=== PATIENT | female | born 1965 | race Caucasian/White ===

== ENCOUNTER 2023-03-17 16:26 | Emergency (ER) | payer OTHER, SELFPAY ==
[2023-03-17 16:29] VITALS: BP 149/89; PULSE 74; RESP 16; TEMP 36.9; O2SAT 96; BMI 26.5
--- NOTE | 2023-03-17 16:36 | PC.NURSE ---
pt states she was outside painting a deck and was stung by a bee on her left hand. left hand is swollen and red. pt is concerned about having respiratory issues related to the bee sting and wanted to be checked out.
--- NOTE | 2023-03-17 16:42 | ED.GENADUL1 ---
HPI - General Adult General Chief complaint: Skin/Abscess/Foreign Body Stated complaint: HAND SWELLING-STUNG Time Seen by Provider: 03/17/23 16:32 Source: patient Mode of arrival: walk-in Limitations: no limitations History of Present Illness HPI narrative: patient is a 57-year-old female presents to the emergency department the evaluation of swelling and redness to the dorsum of the left hand after a bee sting just prior to arrival. She states she was painting her deck when she was stung by a bee in the dorsum of the hand, she noticed redness and swelling and came to the emergency department immediately because she did not wanted to cause a respiratory . She has had no lip swelling, tongue swelling, difficulty breathing or wheezing. She has had no diffuse hives. She has no history of bee sting ALLERGY. No medications taken prior to arrival. Related Data Home Medications Medication Instructions Recorded Confirmed pantoprazole 20 mg tablet,delayed 20 mg PO DAILY 03/17/23 03/17/23 release Previous Rx's Medication Instructions Recorded hydroxyzine HCl 25 mg tablet 25 mg PO Q6H PRN itching #20 tabs 03/17/23 prednisone 20 mg tablet 60 mg PO DAILY #12 tabs 03/17/23 Allergies Allergy/AdvReac Type Severity Reaction Status Date / Time No Known Drug Allergies Allergy Verified 03/17/23 16:32 Review of Systems ROS Constitutional Denies: fever or chills Ears, nose, mouth, and throat Denies: throat pain or neck pain Cardiovascular Denies: chest pain Respiratory Denies: shortness of breath or cough Gastrointestinal Denies: nausea or vomiting Musculoskeletal Denies: back pain Integumentary/Breast Denies: rash PFSH PFSH Social History Smoking status: Never smoker Exam Narrative Exam Narrative: Gen.: Awake, alert, in no distress Head: Normocephalic, atraumatic ENT: Moist mucous membranes, no facial swelling noted Respiratory: No respiratory distress, lungs clear bilaterally Cardio: Regular rate and rhythm Extremities: Moves extremities equally, dorsum of the left hand with a small area of swelling and redness over the 2nd, 3rd, 4th metacarpal joints. No circumferential swelling noted. No evidence of retained stinger. No drainage or open wounds noted Psych: Normal mood and affect Neuro: No focal neuro deficit Skin: Warm, dry, intact Constitutional Vital Signs - 24 hr 03/17/23 16:29 Temperature 98.5 F Pulse Rate [Monitor] 74 Respiratory Rate 16 Blood Pressure [Right Arm] 149/89 H Pulse Oximetry 96 Oxygen Delivery Method Room Air Course Vital Signs Vital signs: Vital Signs Temperature 98.5 F 03/17/23 16:29 Pulse Rate 74 03/17/23 16:29 Respiratory Rate 16 03/17/23 16:29 Blood Pressure 149/89 H 03/17/23 16:29 Pulse Oximetry 96 03/17/23 16:29 Oxygen Delivery Method Room Air 03/17/23 16:29 Temperature 98.5 F 03/17/23 16:29 Pulse Rate 74 03/17/23 16:29 Respiratory Rate 16 03/17/23 16:29 Blood Pressure 149/89 H 03/17/23 16:29 Pulse Oximetry 96 03/17/23 16:29 Oxygen Delivery Method Room Air 03/17/23 16:29 Medical Decision Making MDM Narrative Medical decision making narrative: patient was a benign exam, evidence of localized ALLERGIC reaction to the dorsum of the left hand. Patient with no evidence of anaphylaxis or diffuse ALLERGIC reaction. She is started on Atarax and prednisone. Follow-up with PCP and return to the Emergency Room if symptoms change or worsen. Medical Records Medical records reviewed: Yes I reviewed the patient's medical records Discharge Plan Discharge Chief Complaint: Skin/Abscess/Foreign Body Clinical Impression: Bee sting Patient Disposition: Home, Self-Care Time of Disposition Decision: 16:38 Condition: Good Prescriptions / Home Meds: New prednisone 20 mg tablet 60 mg PO DAILY Qty: 12 0RF Rx Instructions: 3 tabs daily for 2 days, then 2 tabs daily for 2 days, then 1 tab daily for 2 days hydroxyzine HCl 25 mg tablet 25 mg PO Q6H PRN (Reason: itching) Qty: 20 0RF No Action pantoprazole 20 mg tablet,delayed release (DR/EC) 20 mg PO DAILY Instructions: Insect Bite or Sting (ED) Stand Alone Forms: Portal Instructions Referrals: Physician,Non-Staff, MD [Primary Care Provider] - 1 week
[2023-03-17] MEDS: PREDNISONE 20 MG TABLET 60 MG PO (16:47)
== END 2023-03-17 17:02 | disposition home or self-care (01) ==
PROVIDERS: Emergency Provider Emergency Medicine Emergency Medical Services
DX: T63.441A Toxic effect of venom of bees, accidental (unintentional), initial encounter (principal); Z79.899 Other long term (current) drug therapy
CPT/HCPCS: 99283

== ENCOUNTER 2023-04-08 13:29 | Outpatient (OUT) | payer OTHER, SELFPAY ==
--- NOTE | 2023-04-08 13:32 | MM_ITS ---
Patient: ROBEL BOND Exam Date: 04/08/2023 : 1965 Gender:F Ordering : DR José Miguel Forbes . Admission #: [id number] Family : DR Ana Baum M.D. Order #: [id number] CLICK HERE TO VIEW EXAM RADIOLOGY REPORT PROCEDURE: MM TOMOSYNTHESIS SCREENING BI COMPARISON: MG MAMM SCREEN 3D EVERT CAD, 04/04/2022. MG MAMM SCREEN 3D EVERT CAD, 03/28/2021. MG MAMM SCREEN EVERT W CAD, 04/08/2019. MG MAMM EVERT SCRN W CAD DIG, 01/18/2014. INDICATIONS: Screening Calculator Name NCI Breast Cancer Risk Assessment Tool 5 Year Breast Cancer Risk 1.30% Lifetime Breast Cancer Risk 9.10% Personal Breast Cancer No Personal Ovarian Cancer No Treatments None Family Cancers None LOCATION: [facility] BREAST COMPOSITION: Extremely dense, which lowers the sensitivity of mammography. FINDINGS: DIAGNOSTIC CATEGORY 1--NEGATIVE. RIGHT BREAST: No significant suspicious finding. No significant change has occurred. LEFT BREAST: No significant suspicious finding. No significant change has occurred. RECOMMENDATIONS: ROUTINE MAMMOGRAM AND CLINICAL EVALUATION IN 12 MONTHS. PLEASE NOTE: A NORMAL MAMMOGRAM DOES NOT EXCLUDE THE POSSIBILITY OF BREAST CANCER. A CLINICALLY SUSPICIOUS PALPABLE LUMP SHOULD BE BIOPSIED. Dictated by: Jassi Mercado M.D. on 04/08/2023 at 15:43 Approved by: Jassi Mercado M.D. on 04/08/2023 at 15:49
== END 2023-04-08 13:30 | disposition home or self-care (01) ==
LOC: MAMMO 13:29
PROVIDERS: PCP Family Medicine; Visit Provider Obstetrics & Gynecology
DX: Z12.31 Encounter for screening mammogram for malignant neoplasm of breast (principal)
CPT/HCPCS: 77063; 77067

== ENCOUNTER 2023-04-14 09:33 | Outpatient (OUT) | payer OTHER, SELFPAY ==
--- NOTE | 2023-04-14 09:45 | XR_ITS ---
[address] [address] Patient Name: ROBEL BOND MRN: [id number] date: 1965 Sex: F Assigned Patient Location: [facility] Current Patient Location: [facility] Accession/Order Number: [id number] Exam Date: 04/14/2023 10:00 Report Date: 04/14/2023 10:52 At the request of: CARMELINA KEYES Procedure: XR DEXA axial skeleton EXAMINATION: XR DEXA axial skeleton HISTORY: Post menopausal syndrome N95.1 COMPARISON: DEXA bone densitometry 01/18/2022 TECHNIQUE: Dual-energy X-ray absorptiometry (DXA) was performed. FINDINGS: SPINE ANALYSIS: Average bone mineral density is 0.97 g/cm2. T-score (standard deviation relative to young adult mean): -2.4 . +0.7% change since prior study. HIP ANALYSIS: Lowest bone mineral density is within the left femoral trochanter, 0.528 g/cm2. T-score (standard deviation relative to young adult mean): -2.8 . T score of femoral neck is -2.5. +0.7% change since prior study. XR/XR DEXA axial skeleton IMPRESSION: World [employer] Classification: Osteoporosis - High Fracture Risk Electronically authenticated by: JASVIR CHAPPELL Date: 04/14/2023 10:52
== END 2023-04-14 09:34 | disposition home or self-care (01) ==
LOC: RAD 09:33
PROVIDERS: PCP Family Medicine; Visit Provider Obstetrics & Gynecology
DX: N95.1 Menopausal and female climacteric states (principal); M81.0 Age-related osteoporosis without current pathological fracture
CPT/HCPCS: 77080

== ENCOUNTER 2023-11-17 13:43 | Outpatient (OUT) | payer OTHER, SELFPAY ==
--- NOTE | 2023-11-17 13:53 | XR_ITS ---
The [address] [address] Patient Name: ROBEL BOND MRN: [id number] date: 1965 Sex: F Assigned Patient Location: RAD Current Patient Location: [facility] Accession/Order Number: [id number] Exam Date: 11/17/2023 13:57 Report Date: 11/17/2023 14:35 At the request of: DEBRA RATLIFF Procedure: XR hip LT 2V w/ pelvis PROCEDURE: XR hip LT 2V w/ pelvis COMPARISON: None. HISTORY: pain in the left hip with pelvis M25.552 FINDINGS: BONES:No fracture, acute abnormality, or significant arthropathy.1.7 cm area of sclerosis projects over the right inferior acetabulum SOFT TISSUES:Negative. No visible soft tissue swelling. EFFUSION:None visible. OTHER: Moderate stool throughout the colon XR/XR hip LT 2V w/ pelvis IMPRESSION: Focal sclerosis right acetabulum, nonspecific No acute abnormality of the left hip Electronically authenticated by: HARDY MILLER Date: 11/17/2023 14:35
== END 2023-11-17 13:44 | disposition home or self-care (01) ==
LOC: RAD 13:47
PROVIDERS: PCP Family Medicine; Visit Provider Family Medicine
DX: M25.552 Pain in left hip (principal); G89.29 Other chronic pain
CPT/HCPCS: 73502

== ENCOUNTER 2023-12-15 14:57 | Outpatient (RCR) | payer OTHER, SELFPAY | END 2024-01-27 17:20 | disposition home or self-care (01) | LOC: PT 14:57 | PROVIDERS: PCP Family Medicine; Visit Provider Orthopaedic Surgery | DX: M76.892 Other specified enthesopathies of left lower limb, excluding foot (principal) | CPT/HCPCS: 20561; 97110; 97112; 97161 ==

== ENCOUNTER 2024-01-26 15:15 | Outpatient (REF) | payer OTHER, SELFPAY | END 2024-01-26 15:16 | disposition home or self-care (01) | LOC: LAB 15:15 | PROVIDERS: PCP Family Medicine; Visit Provider Obstetrics & Gynecology | DX: Z01.419 Encounter for gynecological examination (general) (routine) without abnormal findings (principal) | CPT/HCPCS: 87624; G0145 ==

== ENCOUNTER 2024-04-09 11:01 | Outpatient (OUT) | payer OTHER, SELFPAY ==
--- NOTE | 2024-04-09 11:04 | MM_ITS ---
Patient Name: ROBEL BOND MR#: [id number] : 1965 Exam Date: 04/09/2024 Ordering Doctor: DR José Miguel Forbes . RADIOLOGY REPORT PROCEDURE: MM TOMOSYNTHESIS SCREENING BI COMPARISON: MM TOMOSYNTHESIS SCREENING BI, 04/08/2023. MG MAMM SCREEN 3D EVERT CAD, 04/04/2022. MG MAMM SCREEN 3D EVERT CAD, 03/28/2021. MG MAMM EVERT SCRN W CAD DIG, 01/18/2014. INDICATIONS: Screening Calculator Name NCI Breast Cancer Risk Assessment Tool 5 Year Breast Cancer Risk 1.40% Lifetime Breast Cancer Risk 8.90% Personal Breast Cancer No Personal Ovarian Cancer No Treatments None Family Cancers None LOCATION: [facility] BREAST COMPOSITION: The breasts are extremely dense, which lowers the sensitivity of mammography. FINDINGS: DIAGNOSTIC CATEGORY 1--NEGATIVE. RIGHT BREAST: No significant suspicious finding. No significant change has occurred. LEFT BREAST: No significant suspicious finding. No significant change has occurred. RECOMMENDATIONS: ROUTINE MAMMOGRAM AND CLINICAL EVALUATION IN 12 MONTHS. PLEASE NOTE: A NORMAL MAMMOGRAM DOES NOT EXCLUDE THE POSSIBILITY OF BREAST CANCER. A CLINICALLY SUSPICIOUS PALPABLE LUMP SHOULD BE BIOPSIED. Dictated by: Jassi Mercado M.D. on 04/09/2024 at 14:17 Approved by: Jassi Mercado M.D. on 04/09/2024 at 14:19
--- NOTE | 2024-04-09 11:04 | XR_ITS ---
[address] [address] Patient Name: ROBEL BOND MRN: [id number] date: 1965 Sex: F Assigned Patient Location: [facility] Current Patient Location: [facility] Accession/Order Number: [id number] Exam Date: 04/09/2024 11:25 Report Date: 04/09/2024 16:21 At the request of: CARMELINA KEYES Procedure: XR DEXA axial skeleton EXAMINATION: XR DEXA axial skeleton HISTORY: Post Menopausal Z78.0 COMPARISON: DEXA bone densitometry 04/14/2023 TECHNIQUE: Dual-energy X-ray absorptiometry (DXA) was performed. FINDINGS: SPINE ANALYSIS: Average bone mineral density is 0.67 g/cm2. T-score (standard deviation relative to young adult mean): -2.6 . -3.4% change since prior study. HIP ANALYSIS: Lowest bone mineral density is within the left femoral neck, 0.649 g/cm2. T-score (standard deviation relative to young adult mean): -2.8 . -5.5% change since prior study. XR/XR DEXA axial skeleton IMPRESSION: World Health Organization Classification: Osteoporosis - High Fracture Risk FRAX: Cannot be calculated. Pharmacologic treatment recommendations * No uniform recommendation applies to all patients. Management plans must be individualized. * Consider initiating pharmacologic treatment in postmenopausal women and men >= 50 years of age who have the following: Primary fracture prevention: * T-score <= - 2.5 at the femoral neck, total hip, lumbar spine, 33% radius (some uncertainty with existing data) by DXA. * Low bone mass (osteopenia: T-score between - 1.0 and - 2.5) at the femoral neck or total hip by DXA with a 10-year hip fracture risk >= 3% or a 10-year major osteoporosis-related fracture risk >= 20% (i.e., clinical vertebral, hip, forearm, or proximal humerus) based on the [place]-adapted FRAXregistered model. Secondary fracture prevention: * Fracture of the hip or vertebra regardless of BMD [4, 5]. * Fracture of proximal humerus, pelvis, or distal forearm in persons with low bone mass (osteopenia: T-score between - 1.0 and - 2.5). The decision to treat should be individualized in persons with a fracture of the proximal humerus, pelvis, or distal forearm who do not have osteopenia or low BMD [12, 13]. Gurpreet MS, Tino SL, Serge KL, Jose Antonio EM, Des KG, AJ, Salena ES. The clinician's guide to prevention and treatment of osteoporosis. Osteoporos Int. 2021;33(10):5196-2431. doi: 10.1007/a11329-206-67065-s. Epub 2021Jan 10. Erratum in: Osteoporos Int. 2021Apr 11;: PMID: 24524922; PMCID: [id number]. Electronically authenticated by: JASVIR CHAPPELL Date: 04/09/2024 16:21
== END 2024-04-09 11:02 | disposition home or self-care (01) ==
LOC: MAMMO 11:01
PROVIDERS: PCP Family Medicine; Visit Provider Obstetrics & Gynecology
DX: Z12.31 Encounter for screening mammogram for malignant neoplasm of breast (principal); Z78.0 Asymptomatic menopausal state; M81.0 Age-related osteoporosis without current pathological fracture
CPT/HCPCS: 77063; 77067; 77080

== ENCOUNTER 2024-08-24 12:00 | Outpatient (RCR) | payer OTHER, SELFPAY | END 2024-09-14 15:07 | disposition home or self-care (01) | LOC: OT 12:00 | PROVIDERS: PCP Family Medicine; Visit Provider Family Medicine | DX: G56.01 Carpal tunnel syndrome, right upper limb (principal) | CPT/HCPCS: 97035; 97110; 97165; 97530 ==

== ENCOUNTER 2024-08-24 12:01 | Outpatient (RCR) | payer OTHER, SELFPAY | END 2024-09-14 15:07 | disposition home or self-care (01) | LOC: PT 12:01 | PROVIDERS: PCP Family Medicine; Visit Provider Family Medicine | DX: M25.562 Pain in left knee (principal) | CPT/HCPCS: 97010; 97014; 97035; 97110; 97161 ==

== ENCOUNTER 2025-02-01 19:20 | Outpatient (REF) | payer OTHER, SELFPAY ==
--- OUTSIDE RECORDS SUMMARY | 2023-12-08 06:10 | XMS_ITS ---
Author Organization [facility] Address [address] [place] [address] Care Team Providers Care Smelter Operator Name Role Phone Ana Baum M.D. Primary Care Provider Jessica MartinezJassi Unavailable [phone] Allergies No Known Allergies Results Component Value Reference Range Notes SCC- PT/OT EVAL AND TREAT 3X /WEEK FOR 6 WEEKS Reviewed date:12/10/2023 02:00:56 PM Interpretation: Performing Lab: Notes/Report: REASON FOR VISIT LEFT HIP PAIN Medications Medication SIG (Take, Route, Frequency, Duration) Notes Start Date End Date Status Vitamin D3 Active Calcium 600+D Active Probiotic Digestive Aid Gummies Active pantoprazole Active Social History Tobacco Use: Social History Observation Description Date Details (start date - stop date) Never Smoker NA - NA Smoking History Question Answer Notes Smoking Status NonSmoker Alcohol Screening Question Answer Notes Did you have a drink containging alcohol in the last year? No Points 0 Interpretation Negative Problems Problem Type SNOMED Code ICD Code Onset Dates Problem Status W/U Status Risk Notes Problem [id number] Hamstring tendinitis of left thigh (M76.892) Active confirmed Vital Signs Height 5'2 in 12/08/2023 Weight 145 lbs 12/08/2023 BMI 26.52 12/08/2023 Encounters Encounter Location Date Provider Diagnosis [facility] Office [address] [place] [address] [address] [place] [address] 12/08/2023 Jassi Martinez Hamstring tendinitis of left thigh M76.892 Assessments Encounter Date Diagnosis (ICD Code) Assessment Notes Treatment Notes Treatment Clinical Notes Section Notes 12/08/2023 Hamstring tendinitis of left thigh (ICD-10 - M76.892) 12/08/2023 Other Patient comes pain localizes to the ischial tuberosity. I discussed the patient that likelihood is that she has inflammation of the ischial tuberosity at the hamstring origin. She is not a candidate for NSAIDs. I recommended physical therapy. She will follow-up in 6 weeks to reassess her progress. If symptoms have not improved we have discussed obtaining an MRI scan for potential planning for a steroid injection. Import medication Plan Of Treatment Treatment Notes Assessment Notes Other Patient comes pain localizes to the ischial tuberosity. I discussed the patient that likelihood is that she has inflammation of the ischial tuberosity at the hamstring origin. She is not a candidate for NSAIDs. I recommended physical therapy. She will follow-up in 6 weeks to reassess her progress. If symptoms have not improved we have discussed obtaining an MRI scan for potential planning for a steroid injection. Import medication Next Appt Details Follow Up: 6 Weeks, Reason: Progress Notes * ROBEL BOND MDOB:[birth year] (58 yo F)Acc No.[id number]:12/08/2023 Patient: ROBEL ALFONSO Provider: Keena Martinez MD :1965 A ge:58 Y S ex:Female Date:12/08/2023 Address:[facility] [id number] Pcp:Ana Baum M.D. Subjective: * Chief Complaints: * L EFT HIP PAIN * HPI: T el Enc Reasons: \N g nawing. G eneral Info per Patient Report: Have you seen another doctor in this practice? N o. S kevan affected is L eft. J oint or body part affected is H ip. D ate of Injury: I think I hurt my hip initially when I fell and broke my wrist in April of 2016. But not sure if that is where it started or not.. S tart of Pain/Cause of Injury N oticed it last year 2022 when I did certain exercises like riding my bicycle and a wide 'step out' squats.. P ain occurred S pontaneous. W ork related: N o. M VA N o. T hird alliance party responsibility: N o. Q uality of pain is m oderate. T ype of pain: d ull. H ave you been seen by a Dentist in the last year? Y es. D o you have any dental problems? N o. P hysician W jonnh of the following physicians are you seeing today? N one of the above. W hat activities help the pain? R est and Ice. G eneral Follow Up Information: Patient presents today for left hip pain. Patient reports symptoms started over a year ago. Activities such as bicycling when she places her leg through extension with hamstring activation causes the pain. She localizes pain to the ischial tuberosity. Activities such as stepping wide during workouts cause pain. * ROS: C onstitutional: Fever N o. W eight loss N o. F atigue Y es.?Headache N o. E ar/Nose/Throat: Difficulty Swallowing Y es. N ose/ Throat: Trouble swallowing N o. G astrointestinal: Ulcer/Reflux Y es. N ausea/Vomiting N o. C onstipation N o. D iarrhea N o. B loody Stool N o. M usculoskeletal: Joint Swelling N o. J oint pain Y es. J oint stiffness N o. H ematologic: Bleeding problem N o. A nemia N o. B ruising?No. C ardiovascular: Chest pain N o. L eg/Ankle Swelling N o. N eurological: Numbness/ Tingling N o. M lyndsey loss N o. ? P sychiatric: Anxiety Y es. 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 M other: Diabetes,Lung Disease,Hypertension,Sleep Apnea. S iblings: Alcoholism. F ather: Arthritis,Diabetes,Heart Trouble,Heart Disease,Hypertension,Alcoholism,Sleep Apnea. * Social History: S moking History S moking Status N onSmoker. A lcohol Screening D id you have a drink containging alcohol in the last year? N o, P oints 0 , I nterpretation N egative. C onsume alcohol D o you drink alcohol? N o. E xercise regularly D o you exercise? Y es, H ow many times per week? d aily, H ow long do you exercise? > 30 min. D o you live W ith whom do you live? s pouse only. W hat is your place of residence? W here do you live? P rivate home. W orking status W hat is your working status? n ot working. * Medications: T akingProbiotic Digestive Aid Gummies Vitamin D3 Calcium 600+D pantoprazole Medication List reviewed and reconciled with the patientTaking Probiotic Digestive Aid Gummies Taking Vitamin D3 Taking Calcium 600+D Taking pantoprazole Medication List reviewed and reconciled with the patient * Allergies: N .K.D.A.no[Allergies Verified] Objective: * Vitals: H t: 5'2 , Wt: 145 lbs, BMI:26.52. * Examination: G eneral examination: E xamination today reveals pain reproduction with palpation of the ischial tuberosity. Painless hip range of motion. Gait is nonantalgic. Grossly neurovascularly intact. X -ray Imaging Studies: X -rays of her left hip which include the ischial tuberosity show no acute abnormalities. No arthritic changes. . M RI Imaging Studies: Assessment: * Assessment: 1. H amstring tendinitis of left thigh - M76.892 (Primary) Plan: * Treatment: 2. O thers Notes: Patient comes pain localizes to the ischial tuberosity. I discussed the patient that likelihood is that she has inflammation of the ischial tuberosity at the hamstring origin. She is not a candidate for NSAIDs. I recommended physical therapy. She will follow-up in 6 weeks to reassess her progress. If symptoms have not improved we have discussed obtaining an MRI scan for potential planning for a steroid injection. Import medication * Procedure Codes: * Follow Up: 6 Weeks Forms: * Images: * Sign off status: Completed true * Provider: Keena Martinez MD Date: 12/08/2023 Generated for Hayden wylie/Yaneth/Juan on: 0 02/01/2025 07:23 PM EDT History and Physical Notes * HPI (History of Present Illness) Category Sub-Category Detail Notes Category Not es Tel Enc Reasons Notes gnawing General Follow Up Information Patient presents tod ay for left hip pain. Patient reports symptoms started over a year ago. Activities such as bicycling when she places her leg through extension with hamstring activation causes the pain. She localizes pain to the ischial tuberosity. Activities such as stepping wide during workouts cause pain. General Info per Patient Report Side affected is Left Joint or body part affected is Hip Pain occurred Spontaneous Work related: No Quality of pain is moderate Type of pain: dull Have you seen another doctor in this practice? No Date of Injury: I think I hurt my hi p initially when I fell and broke my wrist in April of 2016. But not sure if that is where it started or not. Start of Pain/Cause of Injury Noticed it last year 2022 when I did certain exercises like riding my bicycle and a wide 'step out' squats. Third alliance party responsibility: No Have you been seen by a [facility] ist in the last year? Yes Do you have any dental problems? No Physician Which of the followi ng physicians are you seeing today?: None of the above What activities help the pain? Rest and Ice MVA No Examination Category Sub-Category Detail Notes Category Not es General examination Examinat ion today reveals pain reproduction with palpation of the ischial tuberosity. Painless hip range of motion. Gait is nonantalgic. Grossly neurovascularly intact. X-ray Imaging Studies X-rays of her left hip which include the ischial tuberosity show no acute abnormalities. No arthritic changes. MRI Imaging Studies
--- OUTSIDE RECORDS SUMMARY | 2024-01-19 05:30 | XMS_ITS ---
Author Organization [facility] Address [address] [place] [address] Care Team Providers Care Piano Assembler Name Role Phone Ana Baum M.D. Primary Care Provider Jessica kline Jassi Martinez [facility] [phone] Allergies No Known Allergies REASON FOR VISIT LEFT HAMSTRING TENDONITIS, ISCHIAL TUBEROSITY Medications Medication SIG (Take, Route, Frequency, Duration) Notes Start Date End Date Status Vitamin D3 Active Probiotic Digestive Aid Gummies Active pantoprazole Active Calcium 600+D Active Social History Tobacco Use: Social History Observation Description Date Details (start date - stop date) Never Smoker NA - NA Smoking History Question Answer Notes Smoking Status NonSmoker Alcohol Screening Question Answer Notes Did you have a drink containging alcohol in the last year? No Points 0 Interpretation Negative Encounters Encounter Location Date Provider Diagnosis [facility] Office [address] [place] [address] [place] [address] 01/19/2024 Jassi Martinez Hamstring tendinitis of left thigh M76.892 Assessments Encounter Date Diagnosis (ICD Code) Assessment Notes Treatment Notes Treatment Clinical Notes Section Notes 01/19/2024 Hamstring tendinitis of left thigh (ICD-10 - M76.892) 01/19/2024 Other The patient is doing well. She will transition to home exercises and progress activities as tolerated. If symptoms return she will call and to obtain an MRI scan of her pelvis. Import medication Plan Of Treatment Treatment Notes Assessment Notes Other The patient is doing well. She will transition to home exercises and progress activities as tolerated. If symptoms return she will call and to obtain an MRI scan of her pelvis. Import medication Next Appt Details Follow Up: prn, Reason: Progress Notes * ROBEL BOND MDOB:[birth year] (58 yo F)Acc No.[id number]:01/19/2024 Patient: ROBEL ALFONSO Provider: Keena Martinez MD :1965 A ge:58 Y S ex:Female Date:01/19/2024 Address:[facility] [id number] Pcp:Ana Baum M.D. Subjective: * Chief Complaints: * L EFT HAMSTRING TENDONITIS, ISCHIAL TUBEROSITY * HPI: G eneral Follow Up Information: Patient presents today for follow-up of her left hamstring pain and her ischial tuberosity. She has noticed improvement in symptoms while in physical therapy. She still does get some discomfort with prolonged sitting. Biking after 2 miles caused some discomfort. * Medical History: * Surgical History: S [...] Allergies: N .K.D.A.no[Allergies Verified] Objective: * Vitals: * Examination: G eneral examination: O n exam today she is in no obvious distress. No tenderness along the ischial tuberosity. Gait is normal. X -ray Imaging Studies: M RI Imaging Studies: Assessment: * Assessment: 1. H amstring tendinitis of left thigh - M76.892 (Primary) Plan: * Treatment: * Procedure Codes: * Follow Up: p rn Forms: * Images: * Sign off status: Completed true * Provider: Keena Martinez MD Date: 0 01/19/2024 Generated for Hayden wylie/Yaneth/Juan on: 02/01/2025 11:02 AM EDT History and Physical Notes * HPI (History of Present Illness) Category Sub-Category Detail Notes Category Not es General Follow Up Information Patient presents tod ay for follow-up of her left hamstring pain and her ischial tuberosity. She has noticed improvement in symptoms while in physical therapy. She still does get some discomfort with prolonged sitting. Biking after 2 miles caused some discomfort. Examination Category Sub-Category Detail Notes Category Not es General examination On exam today she is in no obvious distress. No tenderness along the ischial tuberosity. Gait is normal. X-ray Imaging Studies MRI Imaging Studies
--- OUTSIDE RECORDS SUMMARY | 2025-02-01 19:23 | XMS_ITS | Patient Health Record ---
Author Organization [facility] Address [address] [place] [address] Care Team Providers Care Health Education Aide Name Role Phone Ana Baum M.D. Primary Care Provider Jessica kline [facility]ass[facility] [phone] Allergies No Known Allergies Reason For Referral No Information Medications Medication SIG (Take, Route, Frequency, Duration) [...] Problem Status W/U Status Risk Notes Problem [id number] Hamstring tendinitis of left thigh (M76.892) Active confirmed Plan Of Treatment No Information Insurance Providers Payer Name Payer Address Payer Phone Subscriber Number Group Number Insured Name Patient Relationship to Insured Coverage Start Date Coverage End Date Medical [facility] [address] [place] [phone] [id number] ROBEL BOND Self - patient is the insured [employer] [address] [place] [phone] [id number] ROBEL BOND Self - patient is the insured Medical (General) History Medical History History ICD Code Respiratory problems:: Yes GI Problems: : Yes Anxiety: : Yes Surgical History Surgery Date(Month/Year) Spinal stenosis 11/2016
[2025-02-04 11:09] LABS: Age Gdln ACOG Testing Note (.); HPV Aptima Negative (Negative); IGP, Aptima HPV, rfx 16/18,45 Note (.)
== END 2025-02-01 19:21 | disposition home or self-care (01) ==
LOC: LAB 19:20
PROVIDERS: PCP Family Medicine; Visit Provider Obstetrics & Gynecology
DX: Z01.419 Encounter for gynecological examination (general) (routine) without abnormal findings (principal)
CPT/HCPCS: 87624; 88175

== ENCOUNTER 2025-04-14 14:40 | Outpatient (OUT) | payer OTHER, SELFPAY ==
--- NOTE | 2025-04-14 14:42 | MM_ITS ---
Patient Name: ROBEL BOND MR#: [id number] : 1965 Exam Date: 04/14/2025 Ordering Doctor: DR CARMELINA KEYES . RADIOLOGY REPORT PROCEDURE: MM TOMOSYNTHESIS SCREENING BI COMPARISON: MM TOMOSYNTHESIS SCREENING BI, 04/09/2024. MM TOMOSYNTHESIS SCREENING BI, 04/08/2023. MG MAMM SCREEN 3D EVERT CAD, 04/04/2022. MG MAMM EVERT SCRN W CAD DIG, 01/18/2014. INDICATIONS: Breast cancer screening Calculator Name [facility] Breast Cancer Risk Assessment Tool 5 Year Breast Cancer Risk 1.40% Lifetime Breast Cancer Risk 8.70% Personal Breast Cancer No Personal Ovarian Cancer No Treatments None Family Cancers None LOCATION: [facility] BREAST COMPOSITION: The breasts are extremely dense, which lowers the sensitivity of mammography. FINDINGS: RIGHT BREAST: No significant suspicious finding. Benign-appearing calcifications are present. LEFT BREAST: No significant suspicious finding. DIAGNOSTIC CATEGORY 2--BENIGN FINDING: RECOMMENDATIONS: ROUTINE MAMMOGRAM AND CLINICAL EVALUATION IN 12 MONTHS. PLEASE NOTE: A NORMAL MAMMOGRAM DOES NOT EXCLUDE THE POSSIBILITY OF BREAST CANCER. A CLINICALLY SUSPICIOUS PALPABLE LUMP SHOULD BE BIOPSIED. Dictated by: Aftab Godfrey MD on 04/14/2025 at 17:03 Approved by: Aftab Godfrey MD on 04/14/2025 at 17:06
== END 2025-04-14 14:41 | disposition home or self-care (01) ==
LOC: MAMMO 14:41
PROVIDERS: PCP Family Medicine; Visit Provider Obstetrics & Gynecology
DX: Z12.31 Encounter for screening mammogram for malignant neoplasm of breast (principal)
CPT/HCPCS: 77063; 77067